=== PATIENT | male | born 1960 | race Caucasian/White ===

== ENCOUNTER 2024-03-11 07:03 | Inpatient (IN) | payer MEDICAID ==
[~2024-03-11] VITALS: Ht 193 cm; Wt 76.4 kg
[2024-03-11 07:41] VITALS: PULSE 64; RESP 18; O2SAT 93
[2024-03-11] MEDS: SODIUM CHLORIDE 0.9% 1,000 ML IVB ONE (09:35)
[2024-03-11] MEDS: PIPERACILLIN-TAZO 4.5GM 100 ML IV ONE (09:35)
[2024-03-11 09:38] LABS: Basophils # (auto) 0.1 10 ^3/uL (0-0.2); Basophils % (auto) 0.7 % (0.0-2.0); Eosinophils # (auto) 0.2 10 ^3/uL (0-0.8); Eosinophils % (auto) 2.3 % (0.0-7.0); Hematocrit 35.6 % (41.0-53.0); Hemoglobin 11.9 g/dL (13.5-17.5); Lymphocytes # (auto) 1.8 10 ^3/uL (0.4-5.4); Lymphocytes % (auto) 24.3 % (10.0-50.0); Mean Corpuscular Hemoglobin 28.1 pg (28.0-32.0); Mean Corpuscular Hgb Conc. 33.3 g/dL (32.0-36.0); Mean Corpuscular Volume 84.4 fL (80.0-100.0); Monocytes % (auto) 12.9 % (0.0-12.0); Neutrophils # (auto) 4.4 10 ^3/uL (1.6-8.6); Neutrophils % (auto) 59.8 % (37.0-80.0); Nucleated Red Blood Cells % 0.1 %; Red Blood Cells 4.22 10^6/uL (4.5-5.90); Red Cell Distribution Width 15.1 % (11.8-14.3); White Blood Cell 7.4 10^3/uL (4.4-10.8)
[2024-03-11 09:56] LABS: Albumin 3.4 g/dL (3.2-4.8); Alkaline Phosphatase 97 U/L (46-116); Anion Gap 7 (5-15); BUN/Creatinine Ratio 17.5 (10.0-20.0); Bilirubin, Total 0.2 mg/dL (0.2-1.0); Blood Alcohol < 3.0 mg/dL (<10); Blood Urea Nitrogen 62 mg/dL (9-23); Calcium 8.8 mg/dL (8.7-10.4); Carbon Dioxide 20 mmol/L (20-30); Chloride 109 mmol/L (98-107); Glucose 173 mg/dL (74-106); Magnesium 1.7 mg/dL (1.6-2.6); Potassium 4.8 mmol/L (3.5-5.1); Sodium 136 mmol/L (136-145); Total Protein 6.3 g/dL (5.7-8.2)
[2024-03-11 10:00] LABS: Aspartate Aminotransferase < 8 U/L (13-40)
[2024-03-11 10:17] LABS: Alanine Aminotransferase < 9 U/L (7-40)
[2024-03-11] MEDS ORDERED: DOCUSATE SOD 100 MG CAP PO PRN (13:15)
[2024-03-11] MEDS ORDERED: ONDANSETRON HCL 4 MG/2 ML VIAL IV PRN (13:15)
[2024-03-11] MEDS ORDERED: HYDROcodone-ACET 5/325MG TAB PO PRN (13:15)
[2024-03-11] MEDS ORDERED: ACETAMINOPHEN 325 MG TAB PO PRN (13:15)
[2024-03-11] MEDS: SODIUM CHLOR 0.9% PF (SALINE LOCK) 10ML VIAL/SYR IV SCH (14:16)
[2024-03-11 14:54] LABS: Creatinine, Urine 29.48 mg/dL (30.0-125.0)
[2024-03-11 14:55] LABS: Amphetamine Screen, Urine Pos (NEGATIVE)
[2024-03-11 14:56] LABS: Benzodiazephine Screen, Urine Neg (NEGATIVE)
[2024-03-11 14:57] LABS: Barbiturate Scree,Urine Neg (NEGATIVE)
[2024-03-11 14:58] LABS: Cannabinoid Screen, Urine Neg (NEGATIVE); Cocaine Screen, Urine Neg (NEGATIVE); Opiate Scree,Urine Neg (NEGATIVE); Phencyclidine Screen, Urine Neg (NEGATIVE)
[2024-03-11] MEDS: SODIUM CHLORIDE 0.9% 1,000 ML IV SCH (16:45)
[2024-03-11 16:47] VITALS: BP 98/66; PULSE 81; RESP 17; TEMP 97.3; O2SAT 96
[2024-03-11 21:00] VITALS: BP 107/67; PULSE 63; RESP 18; TEMP 98.1; O2SAT 96
[2024-03-11 21:09] VITALS: BP 107/67; PULSE 63; RESP 18; TEMP 98.1; O2SAT 96
[2024-03-11] MEDS ORDERED: INSU100I52 IJ (22:48)
[2024-03-11] MEDS ORDERED: INSLANTI SC (22:48)
[2024-03-12] VITALS (8 sets, daily range): BP systolic 101–127; BP diastolic 62–88; PULSE 57–98; RESP 16–20; TEMP 97.3–98.1; O2SAT 90–97
[2024-03-12 06:20] LABS: Anion Gap 9 (5-15); Carbon Dioxide 19 mmol/L (20-30); Chloride 104 mmol/L (98-107); Potassium 4.7 mmol/L (3.5-5.1); Sodium 132 mmol/L (136-145)
[2024-03-12 06:26] LABS: BUN/Creatinine Ratio 17.8 (10.0-20.0)
[2024-03-12 06:28] LABS: Phosphorus 3.5 mg/dL (2.4-5.1)
[2024-03-12 06:37] LABS: % Iron Saturation 12.6 % (20-55)
[2024-03-12 06:59] LABS: Blood Urea Nitrogen 51 mg/dL (9-23)
[2024-03-12 07:00] LABS: Glucose 411 mg/dL (74-106)
[2024-03-12 11:14] LABS: Basophils # (auto) 0.1 10 ^3/uL (0-0.2); Eosinophils # (auto) 0.1 10 ^3/uL (0-0.8); Eosinophils % (auto) 1.7 % (0.0-7.0); Hematocrit 37.2 % (41.0-53.0); Hemoglobin 12.3 g/dL (13.5-17.5); Lymphocytes # (auto) 1.5 10 ^3/uL (0.4-5.4); Lymphocytes % (auto) 22.1 % (10.0-50.0); Mean Corpuscular Hemoglobin 28.7 pg (28.0-32.0); Mean Corpuscular Hgb Conc. 33.1 g/dL (32.0-36.0); Mean Corpuscular Volume 86.8 fL (80.0-100.0); Monocytes # (auto) 0.9 10 ^3/uL (0-1.3); Monocytes % (auto) 13.6 % (0.0-12.0); Neutrophils # (auto) 4.2 10 ^3/uL (1.6-8.6); Neutrophils % (auto) 61.6 % (37.0-80.0); Nucleated Red Blood Cells % 0.2 %; Red Blood Cells 4.29 10^6/uL (4.5-5.90); Red Cell Distribution Width 14.6 % (11.8-14.3); White Blood Cell 6.8 10^3/uL (4.4-10.8)
[2024-03-12] MEDS ORDERED: DEXTROSE (50%) 50ML SYRG IV PRN (12:00)
[2024-03-12] MEDS: ACCU-CHEK COMFORT CURVE STRIP VI SCH (12:55)
[2024-03-12 12:56] LABS: Urine Bacteria FEW /hpf (None Seen); Urine Blood 1+ /uL (Negative); Urine Budding Yeast OCCASIONAL /hpf (None Seen); Urine Protein, UAD 1+ (Negative); Urine Specific Gravity 1.009 (1.001-1.035); Urine Urobilinogen Normal (Negative); Urine WBC 680 /hpf (0 - 3); Urine WBC Clumps PRESENT /hpf (None Seen); Urine pH 5.5 (5.0-9.0)
[2024-03-12 12:57] LABS: Urine Clarity Cloudy (Clear); Urine Color Light-Yellow (Yellow)
[2024-03-12] MEDS: InsuLIN REG 1unit/0.01ml Soln (100units/ml) SC SCH (13:14)
[2024-03-12] MEDS: cefTRIAXone 1GM/50ML D5W 50 ML IV ONE (15:42)
[2024-03-12] MEDS: INSULIN LANTUS (GLARGINE) 1 /0.01ml (100units/ml) SC SCH (17:47)
[2024-03-12] MEDS: FERROUS SULFATE 325mg EC TAB PO SCH (17:49)
[2024-03-13 01:03] VITALS: BP 124/85; PULSE 81; RESP 20; TEMP 97.9; O2SAT 97
[2024-03-13 06:46] LABS: Chloride 104 mmol/L (98-107); Potassium 4.5 mmol/L (3.5-5.1); Sodium 135 mmol/L (136-145)
[2024-03-13 06:47] LABS: Anion Gap 7 (5-15); Carbon Dioxide 24 mmol/L (20-30)
[2024-03-13 06:52] LABS: BUN/Creatinine Ratio 17.3 (10.0-20.0)
[2024-03-13 06:53] LABS: Blood Urea Nitrogen 41 mg/dL (9-23); Glucose 279 mg/dL (74-106)
[2024-03-13 06:54] LABS: Phosphorus 3.4 mg/dL (2.4-5.1)
[2024-03-13 08:00] VITALS: PULSE 102; RESP 17; O2SAT 97
[2024-03-13] MEDS: cefTRIAXone 1GM/50ML D5W 50 ML IV SCH (08:43)
[2024-03-13 09:00] LABS: Hepatitis B Surface Antigen Negative (Negative)
[2024-03-13 09:02] VITALS: BP 140/83; PULSE 102; RESP 17; TEMP 98.3; O2SAT 97
[2024-03-13 09:43] LABS: Hepatitis C Antibody Negative (Negative)
[2024-03-13 14:04] VITALS: BP 110/72; PULSE 62; RESP 18; TEMP 97.8; O2SAT 97
[2024-03-13] MEDS ORDERED: TAMS-35 PO (14:15)
[2024-03-13] MEDS ORDERED: CEPH500T PO (14:15)
[2024-03-13 15:11] VITALS: BP 110/72; PULSE 62; RESP 18; TEMP 36.6; O2SAT 97
== END 2024-03-13 15:45 | disposition home or self-care (01) | DRG 463 ==
LOC: ER 07:03 → OVERFLOW 13:18 → EAST 15:03
PROVIDERS: ADMIT Internal Medicine Geriatric Medicine; ATTEND Internal Medicine Geriatric Medicine
DX: N13.6 Pyonephrosis (principal); N17.0 Acute kidney failure with tubular necrosis; D63.8 Anemia in other chronic diseases classified elsewhere; E11.22 Type 2 diabetes mellitus with diabetic chronic kidney disease; F15.10 Other stimulant abuse, uncomplicated; N18.4 Chronic kidney disease, stage 4 (severe); Z79.4 Long term (current) use of insulin; Z80.0 Family history of malignant neoplasm of digestive organs; Z80.3 Family history of malignant neoplasm of breast; Z83.3 Family history of diabetes mellitus; Z85.07 Personal history of malignant neoplasm of pancreas
CPT/HCPCS: 36415; 71045; 74176; 76775; 80048; 80053; 80307; 80320; 81001; 82570; 82962; 83540; 83550; 83605; 83735; 84100; 84300; 85025; 85379; 86803; 87081; 87086; 87088; 87340; 93005; 96365; G0378; J1815; J2543